=== PATIENT | female | born 1975 | race Caucasian/White ===

== ENCOUNTER 2020-10-05 10:26 | Outpatient (CLI) | payer OTHER | END 2020-10-05 10:31 | disposition home or self-care (01) | LOC: SONOGRAMA 10:26 | PROVIDERS: ATTEND Pathology Anatomic Pathology & Clinical Pathology | DX: E04.1 Nontoxic single thyroid nodule (principal) ==

== ENCOUNTER 2020-10-24 09:00 | Inpatient (IN) | payer OTHER ==
[~2020-10-24] VITALS: Ht 160 cm; Wt 126.6 kg
[2020-10-24] MEDS ORDERED: CANDESARTAN CIL16 MG PO (10:18)
== END 2020-11-07 13:33 | disposition home or self-care (01) | DRG 627 ==
LOC: SURH 11-02 04:55 → O/R 11-02 04:55 → SURH 11-02 07:00
PROVIDERS: ADMIT Specialist; ATTEND Specialist
PROC: 0GTK0ZZ Resection of Thyroid Gland, Open Approach (ICD-10-PCS; principal; 2020-11-02 07:00)
DX: C73 Malignant neoplasm of thyroid gland (principal); E83.51 Hypocalcemia; I10 Essential (primary) hypertension; E03.9 Hypothyroidism, unspecified; E66.01 Morbid (severe) obesity due to excess calories; Z20.822 Contact with and (suspected) exposure to COVID-19

== ENCOUNTER → 2020-12-14 | Outpatient (CLI) | payer OTHER ==
[~2020-12-14] MED LIST: CANDESARTAN CIL16 MG PO
== END | disposition home or self-care (01) ==
LOC: NUCLEAR 13:30
PROVIDERS: ATTEND Internal Medicine Sports Medicine
DX: C73 Malignant neoplasm of thyroid gland (principal); E89.0 Postprocedural hypothyroidism
CPT/HCPCS: 79005; A9517

== ENCOUNTER 2020-12-18 13:17 | Outpatient (CLI) | payer OTHER | END 2020-12-20 07:56 | disposition home or self-care (01) | LOC: NUCLEAR 13:17 | PROVIDERS: ATTEND Internal Medicine Sports Medicine | DX: C73 Malignant neoplasm of thyroid gland (principal); E89.0 Postprocedural hypothyroidism | CPT/HCPCS: 78018; A9548 ==

== ENCOUNTER 2023-04-11 23:24 | Emergency (ER) | payer OTHER ==
[~2023-04-11] VITALS: Ht 162.6 cm; Wt 124.7 kg
[2023-04-11] MEDS ORDERED: SYNTHROID175 MCG (23:36)
[2023-04-12] MEDS ORDERED: NORFLEX100MG PO (03:11)
[2023-04-12] MEDS ORDERED: MEDROLPACK PO (03:11)
[2023-04-12] MEDS ORDERED: ACETAMINOPHEN650 M2 PO (03:11)
== END 2023-04-12 03:36 | disposition home or self-care (01) ==
LOC: ER 23:25
PROVIDERS: General Practice
DX: R07.89 Other chest pain (principal); I10 Essential (primary) hypertension; E03.9 Hypothyroidism, unspecified